=== PATIENT | female | born 1995 | race Caucasian/White ===

== ENCOUNTER → 2017-08-15 | Outpatient (CLI) | payer OTHER ==
[~2017-08-15] MED LIST: BISM262C5 PO; ONDA4TAB46 PO
--- NOTE | 2017-08-15 12:44 | MAMMOGRAPHY REPORT ---
ULTRASOUND OF RIGHT BREAST: 08/15/2017 CLINICAL HISTORY: 21-year-old woman presents for evaluation of a palpable lump in the upper inner steven drant of the right breast that she has felt for 2-3 months no skin erythema or nipple discharge. No family history of breast cancer. COMPARISON: No prior exams were available for comparison. TECHNIQUE: Targeted right breast ultrasound was performed over the palpable lump pointed out by the p atient. FINDINGS: On palpation, there is a firm 1 cm mass in the 1:30 right breast, 5 cm from the nipple. On targeted ultrasound, there is a partially circumscribed, gently lobulated hypoechoic solid mass ingris uring 7.3 x 4.9 x 7.3 mm. Although this could represent a benign fibroadenoma, definitive characteri zation with an ultrasound-guided core biopsy is recommended to exclude phyllodes. IMPRESSION: ACR BI-RADS CATEGORY 4: SUSPICIOUS - FOLLOW-UP RECOMMENDED 1. Ultrasound-guided core needle biopsy is recommended for a solid palpable 7.3 mm mass in the 1:30 right breast, 5 cm from the nipple. These results and recommendations were discussed with the patient at the time of the exam. She tenta tively scheduled the biopsy prior to leaving the department. Genia Hernandez M.D. ay/:08/15/2017 11:18:08 Compliance Specialist: Dr. Genia Hernandez, [facility] letter sent: Abnormal 4/5 BI-RADS Code: ACR BI-RADS Category 4: Suspicious
== END | disposition home or self-care (01) ==
LOC: C.MAMM 10:53
PROVIDERS: ATTEND Physician Assistant Medical
DX: N63.12 Unspecified lump in the right breast, upper inner quadrant (principal)

== ENCOUNTER → 2017-09-02 | Outpatient (CLI) | payer OTHER ==
--- NOTE | 2017-09-02 11:42 | Discharge Instructions ---
Discharge Instructions Procedure Procedure Date: Sep 02, 2017. Reason for visit: Right Mass. Discharge Discharge Date: Sep 02, 2017. Discharge Diagnosis: status post breast biopsy Instructions Activity Recommendations: Additional Limitations (see below) Return to School/Work: no limitations Recommended Home Diet: No Limitations Provider Instructions: ACTIVITY RECOMMENDATIONS: * No lifting, pushing, pulling or exercising the affected side for three days. RETURN TO SCHOOL/WORK: * You may return to work/school after the procedure, but do not perform any strenuous activities for 24 to 48 hours. MEDICATIONS: * Tylenol (two 325 mg) every four to six hours if needed for mild pain (if not allergic to Tylenol). DIET: * Resume previous diet. SPECIAL CARE INSTRUCTIONS: * Keep biopsy site dry for 24 hours. May shower after 24 hours, but do not soak (bathe) incision. * May remove Tegaderm (plastic patch) tomorrow AFTER showering. * Leave the steri-strips on for one week. Allow the steri-strips to fall off by themselves. If not off after one week, you may remove them. You may place a Bandaid crosswise over the strips, if desired. * Apply ice 10 minutes on and 10 minutes off as needed. * Wear a bra at bedtime to sleep more comfortably for 2-3 days. * Your referring physician should have the results after approximately 5 to 7 business days. * Call for unusual bleeding, fever, drainage, etc or if you have any questions call during normal business hours or after hours call Dr Cooney, [phone]. FOLLOW UP VISIT: Follow-up with Referring Physician as scheduled. Allergies Coded Allergies: Amoxicillin (Unverified Allergy, Unknown, RASH, 08/07/15) Penicillins (Unverified Allergy, Unknown, RASH, 08/07/15) Taco Álvarez Recommendations: Call your doctor if: * Temperature above 101 degrees * Pain not relieved by pain medicine ordered * There is increased drainage or redness from any incision * You have any unanswered questions or concerns. Your Doctors Instructions noted above were prepared by provider Krysta Cooney. Patient Signature Section: Patient Instructions Signature Page Krysta Richard Patient (or Guardian) Signature/Date: I have read and understand the instructions given to me by my caregivers. Caregiver/RN/Doctor Signature/Date: The above-named patient and/or guardian has received patient instructions on this date. + Original Patient Signature Page (only) stays with chart. Please make copy for patient.
--- NOTE | 2017-09-05 07:43 | MAMMOGRAPHY REPORT ---
ULTRASOUND GUIDED BIOPSY RIGHT BREAST: 09/02/2017 CLINICAL HISTORY: Right 1:30 breast mass. PATIENT CONSENT: The procedure, risks and benefits were discussed with the patient and informed writt en consent was obtained. A timeout was performed immediately prior to the procedure. PROCEDURE DESCRIPTION: With ultrasound guidance, aseptic technique, and lidocaine as the local anesth etic (1% lidocaine to anesthetize the skin and 1% lidocaine with epinephrine to anesthetize the deepe r tissues), the mass of concern in the right breast at 1:30 was sampled 4 times with a 14-gauge Achie ve biopsy needle. Immediately thereafter, with ultrasound guidance, aseptic technique, and lidocaine as the local anesthetic, a metallic localizer clip was placed centrally in the mass. Direct pressur e was applied to the site immediately post procedure and hemostasis was achieved. The patient had so me lightheadedness after the procedure, however, this resolved after a few minutes and she left the d epartment with her mother in satisfactory condition. She was given wound care instructions. The spec imens were sent to pathology for analysis. COMPARISON: Comparison is made to exam dated: 08/15/2017 ultrasound - [facility]. IMPRESSION: ULTRASOUND GUIDED BIOPSY Ultrasound-guided core needle biopsy of the right 1:30 breast mass, with clip placement. The patient will receive pathology results from her referring provider. Krysta Cooney M.D. /:09/02/2017 12:26:55 Registry Rn: Iris Hebert, [facility]
== END | disposition home or self-care (01) ==
LOC: C.MAMM 10:36
PROVIDERS: ATTEND Physician Assistant Medical
DX: N63.10 Unspecified lump in the right breast, unspecified quadrant (principal); D24.1 Benign neoplasm of right breast